=== PATIENT | male | born 1950 | race Caucasian/White ===

== ENCOUNTER 2019-01-03 21:14 | Emergency (ER) | payer MEDICARE ==
[~2019-01-03 21:14] MED LIST: Sodium Chloride Irrig Solution 250 ML BOT ONE
[2019-01-03] MEDS ORDERED: Lidocaine 1% w/Epinephrine 1:100K 30 ML VIAL ONE (21:39)
--- NOTE | 2019-01-03 22:00 | CT ---
CT OF THE BRAIN WITHOUT CONTRAST 01/03/19 INDICATION: Trauma with head injury. COMPARISON: None. FINDINGS: There is a right frontal scalp contusion. Skull is intact. No acute intracranial hemorrhage, hydrocep halus or midline shift is present. There is mild mucosal thickening within the ethmoid air cells. IMPRESSION: 1. No acute intracranial abnormality. 2. Right frontal scalp contusion. 3. Mild paranasal sinus disease. POS: [facility]
--- NOTE | 2019-01-03 22:05 | CT ---
CT CERVICAL SPINE WITHOUT CONTRAST 01/03/19 INDICATION: History of trauma with neck pain. COMPARISON: None. FINDINGS: No acute fracture or subluxation is evident. There is slight anterior translation of C3 on C4 and C4 on C5 which is likely degenerative in nature. There is advanced disc degenerative disease of C5-6 and C6-7. There is multilevel facet osteoarthritic change most prominent on the right at C3-4 and C4-5 a nd C5-6. There is reversal of the normal cervical lordosis. Craniocervical junction appears within no rmal limits. Lung apices and prevertebral soft tissues appear within normal limits. There are dystrop hic calcifications seen within the palatine tonsils. IMPRESSION: 1. No acute osseous abnormality. 2. Moderate to severe spondylosis of the cervical spine. POS: [facility]
== END 2019-01-03 22:29 | disposition home or self-care (01) ==
LOC: MADERS 21:14
DX: S01.01XA Laceration without foreign body of scalp, initial encounter (principal); N40.0 Benign prostatic hyperplasia without lower urinary tract symptoms; I10 Essential (primary) hypertension; F17.220 Nicotine dependence, chewing tobacco, uncomplicated; Z79.899 Other long term (current) drug therapy; W01.198A Fall on same level from slipping, tripping and stumbling with subsequent striking against other object, initial encounter
CPT/HCPCS: 12002; 70450; 72125; J2001

== ENCOUNTER 2019-01-09 12:37 | Emergency (ER) | payer MEDICARE | END 2019-01-09 13:42 | disposition home or self-care (01) | LOC: MADERS 12:37 | DX: S01.01XD Laceration without foreign body of scalp, subsequent encounter (principal); I10 Essential (primary) hypertension; N40.0 Benign prostatic hyperplasia without lower urinary tract symptoms; F17.220 Nicotine dependence, chewing tobacco, uncomplicated; Z79.899 Other long term (current) drug therapy; X58.XXXD Exposure to other specified factors, subsequent encounter | CPT/HCPCS: 12001 ==

== ENCOUNTER 2019-10-21 13:33 | Emergency (ER) | payer MEDICARE ==
--- NOTE | 2019-10-21 14:15 | RAD ---
XR Chest Pa Lat STANDARD HISTORY: Cough and shortness of breath COMPARISON: None. FINDINGS: Heart size and mediastinum are within normal limits. The lungs are clear of infiltrates. No significant bony findings. IMPRESSION: No active intrathoracic disease.
[2019-10-21] MEDS ORDERED: Benzonatate 100 MG CAP ONE (14:42)
[2019-10-21] MEDS ORDERED: Dexamethasone 4 mg/ml Vial ONE (14:42)
[2019-10-21] MEDS ORDERED: Azithromycin 250 MG TAB ONE (14:42)
[2019-10-21] MEDS ORDERED: Dexamethasone 4 MG TAB ONE (14:43)
== END 2019-10-21 14:50 | disposition home or self-care (01) ==
LOC: MADERS 13:33
DX: J18.9 Pneumonia, unspecified organism (principal); H92.03 Otalgia, bilateral; I10 Essential (primary) hypertension; N40.0 Benign prostatic hyperplasia without lower urinary tract symptoms; F17.220 Nicotine dependence, chewing tobacco, uncomplicated; Z79.899 Other long term (current) drug therapy
CPT/HCPCS: 71046; 87804; J1100; J8540

== ENCOUNTER 2020-12-21 12:02 | Emergency (ER) | payer MEDICARE ==
[2020-12-22 05:45] LABS: SARS-CoV-2 PCR by NAA DETECTED (NotDetected)
== END 2020-12-21 12:52 | disposition home or self-care (01) ==
LOC: MADERS 12:02
DX: U07.1 COVID-19 (principal); J06.9 Acute upper respiratory infection, unspecified; N40.0 Benign prostatic hyperplasia without lower urinary tract symptoms; F17.220 Nicotine dependence, chewing tobacco, uncomplicated
CPT/HCPCS: 99283; U0003; U0005; 87635

== ENCOUNTER 2021-03-08 08:21 | Emergency (ER) | payer MEDICARE | END 2021-03-08 10:01 | disposition home or self-care (01) | LOC: MADERS 08:21 | DX: J06.9 Acute upper respiratory infection, unspecified (principal); N40.0 Benign prostatic hyperplasia without lower urinary tract symptoms; I10 Essential (primary) hypertension; F17.220 Nicotine dependence, chewing tobacco, uncomplicated; Z87.19 Personal history of other diseases of the digestive system; Z79.899 Other long term (current) drug therapy | CPT/HCPCS: 71045; 87804; 93005; J7620 ==

== ENCOUNTER 2021-03-10 07:04 | Emergency (ER) | payer MEDICARE | END 2021-03-10 07:50 | disposition home or self-care (01) | LOC: MADERS 07:04 | DX: J18.0 Bronchopneumonia, unspecified organism (principal); J32.9 Chronic sinusitis, unspecified; N40.0 Benign prostatic hyperplasia without lower urinary tract symptoms; I10 Essential (primary) hypertension; F17.220 Nicotine dependence, chewing tobacco, uncomplicated; Z79.899 Other long term (current) drug therapy | CPT/HCPCS: 99283 ==

== ENCOUNTER 2021-09-15 11:49 | Emergency (ER) | payer MEDICARE ==
[2021-09-15] MEDS ORDERED: predniSONE 20 MG TAB ONE (12:22)
== END 2021-09-15 12:30 | disposition home or self-care (01) ==
LOC: MADERS 11:49
DX: R09.81 Nasal congestion (principal); H92.03 Otalgia, bilateral; I10 Essential (primary) hypertension; F17.220 Nicotine dependence, chewing tobacco, uncomplicated
CPT/HCPCS: 99283; J7512

== ENCOUNTER 2023-09-26 09:08 | Emergency (ER) | payer MEDICARE | END 2023-09-26 10:15 | disposition home or self-care (01) | LOC: MADERS 09:08 | DX: J01.00 Acute maxillary sinusitis, unspecified (principal); I10 Essential (primary) hypertension; F17.220 Nicotine dependence, chewing tobacco, uncomplicated; Z79.899 Other long term (current) drug therapy | CPT/HCPCS: 99283 ==

== ENCOUNTER 2024-02-04 08:30 | Emergency (ER) | payer MEDICARE ==
[2024-02-04] MEDS ORDERED: Tetracaine 0.5% PF 4 ML BOT ONE (09:03)
[2024-02-04] MEDS ORDERED: Fluorescein Opthalmic Strip ONE (09:03)
== END 2024-02-04 10:25 | disposition home or self-care (01) ==
LOC: MADERS 08:30
DX: H10.45 Other chronic allergic conjunctivitis (principal); I10 Essential (primary) hypertension; F17.220 Nicotine dependence, chewing tobacco, uncomplicated
CPT/HCPCS: 99283

== ENCOUNTER 2024-06-08 16:16 | Emergency (ER) | payer MEDICARE ==
[2024-06-08 17:10] LABS: #Basophils 0.1 thou/uL (0.0-0.2); #Eosinphils 0.2 thou/uL (0.0-0.7); #Monocytes 0.5 thou/uL (0.11-0.59); #Neutrophils 3.9 thou/uL (1.40-6.50); %Eosinophils 2.8 % (0.0-10.0); %Lymphocytes 18.2 % (21.0-51.0); %Monocytes 8.4 % (0.0-10.0); %Neutrophils 69.7 % (42.0-75.0); Hematocrit 39.9 % (42.0-52.0); Hemoglobin 12.7 g/dL (14.0-18.0); Mean Corpuscular HGB CONC 31.9 g/dL (32.0-36.0); Mean Corpuscular Hemoglobin 29.7 pg (27.0-31.0); Mean Corpuscular Volume 93.3 fl (78.0-98.0); Mean Platelet Volume 7.9 fL (7.4-10.4); Platelet Count 137 10x3/uL (130-400); RBC Distribution Width 13.6 % (11.5-14.5); Red Blood Cell (RBC) Count 4.27 mill/uL (4.70-6.10); White Blood Cell (WBC) Count 5.6 10x3/uL (4.8-10.8)
[2024-06-08 17:26] LABS: ALT (SGPT) 18 U/L (8-55); AST (SGOT) 17 U/L (5-34); Albumin 4.1 g/dL (3.4-4.8); Alkaline Phosphatase 58 U/L (40-110); Anion Gap 15 mmol/L (10-20); BUN (Urea Nitrogen) 17 mg/dL (8.4-25.7); Bilirubin, Total 0.9 mg/dL (0.2-1.2); Calc. Creatinine Clearance 0 mL/min (70-130); Calcium 8.8 mg/dL (7.8-10.44); Carbon Dioxide 25 mmol/L (23-31); Chloride 108 mmol/L (98-107); Estimated GFR 86; Globulin 2.4 g/dL (2.4-3.5); Glucose 101 mg/dL (83-110); Lipase 24 U/L (8-78); Potassium 4.2 mmol/L (3.5-5.1); Protein, Total 6.5 g/dL (5.8-8.1); Sodium 144 mmol/L (136-145)
[2024-06-08 17:27] LABS: Troponin I Less than 0.010 ng/mL (< 0.028)
== END 2024-06-08 18:00 | disposition home or self-care (01) ==
LOC: MADERS 16:16
DX: R00.0 Tachycardia, unspecified (principal); R53.83 Other fatigue; I10 Essential (primary) hypertension; F17.220 Nicotine dependence, chewing tobacco, uncomplicated; Z79.899 Other long term (current) drug therapy
CPT/HCPCS: 71045; 80053; 83690; 83735; 83880; 84484; 85025; 93005; 94760

== ENCOUNTER 2024-06-29 09:38 | Emergency (ER) | payer MEDICARE ==
[2024-06-29 10:30] LABS: SARS-CoV-2 E Target Positive; SARS-CoV-2 N2 Target Positive; SARS-CoV-2 NAA Rapid Test DETECTED (NotDetected); SARS-CoV-2 RdRP gene Positive
[2024-06-29] MEDS ORDERED: Benzonatate 100 MG CAP ONE (10:39)
[2024-06-29] MEDS ORDERED: Dexamethasone 10 MG/ML VIAL ONE (10:39)
== END 2024-06-29 10:53 | disposition home or self-care (01) ==
LOC: MADERS 09:38
DX: U07.1 COVID-19 (principal); I10 Essential (primary) hypertension; F17.220 Nicotine dependence, chewing tobacco, uncomplicated
CPT/HCPCS: 87804; 96372; 99283; J1100; U0002

== ENCOUNTER 2024-12-05 08:41 | Emergency (ER) | payer MEDICARE ==
[2024-12-05] MEDS ORDERED: Oseltamivir 75 MG CAP ONE (09:07)
== END 2024-12-05 09:31 | disposition home or self-care (01) ==
LOC: MADERS 08:41
DX: J11.1 Influenza due to unidentified influenza virus with other respiratory manifestations (principal); F17.220 Nicotine dependence, chewing tobacco, uncomplicated; I10 Essential (primary) hypertension
CPT/HCPCS: 71046